=== PATIENT | female | born 1980 | race Caucasian/White ===

== ENCOUNTER 2017-07-10 15:02 | Emergency (ER) | payer BC, OTHER ==
[2017-07-10 15:10] VITALS: BP 136/88; PULSE 75; RESP 16; TEMP 97.7; O2SAT 97
--- NOTE | 2017-07-10 15:52 | EDPHY ---
H & P Stated Complaint: Slipped on ice this am hit bk head no loc - - Personal History LMP (Females 10-55): Unknown - Medical/Surgical History Hx Asthma: No Hx Chronic Respiratory Disease: No Hx Diabetes: No Hx Cardiac Disease: No Hx Renal Disease: No Hx Cirrhosis: No Hx Alcoholism: No Hx HIV/AIDS: No Hx Splenectomy or Spleen Trauma: No Other PMH: depression - Social History Smoking Status: Never smoked Time Seen by Provider: 07/10/17 15:25 HPI/ROS: CHIEF COMPLAINT: Head injury slipped on ice HISTORY OF PRESENT ILLNESS: 36-year-old female generally healthy, no anticoagulant use, arrives via private vehicle complaining of occipital head injury after she slipped on ice earlier today. She is in the ER to be evaluated as her colleagues were worried. She is complaining of mild nonprogressive non thunderclap headache and paraspinous cervical pain. No loss of consciousness. No amnesia. No alcohol or drug use. No midline C-spine pain. No headache. No nausea no vomiting. No peripheral paresthesia, weakness, numbness PRIMARY CARE PROVIDER: REVIEW OF SYSTEMS: A ten point review of systems was performed and is negative with the exception of the items mentioned in the HPI PAST MEDICAL/SURGICAL HISTORY: no anticoagulant use, no relevant medical/ surgical history SOCIAL HISTORY: denies alcohol use at time of incident PHYSICAL EXAM 1) GENERAL: Well-developed, well-nourished, alert and oriented. Appears to be in no acute distress. Answering questions appropriately. 2) HEAD: Normocephalic, atraumatic 3) HEENT: Pupils equal, round, reactive to light bilaterally. Negative Horners. Nasopharynx, oropharynx, clear. No deformity or angulation of nose. No septal hematoma. No rhinorrhea. No oral trauma. Ears bilaterally with normal tympanic membranes. No hemotympanum. No fluid or blood in the external auditory canal. No raccoon eyes. No Pitts sign. Teeth are normally aligned with no gross malocclusion, TMJ bilaterally nontender, facial bones nontender including the zygomatic arch, maxilla mandible. 4) NECK: No cervical collar is on. Posterior cervical spine is nontender, no stepoff, no effusion. Full range of motion which does not elicit any midline cervical spine pain, no posterior midline tenderness, no step-off. Mild this palpation paraspinous cervical muscles. 5) LUNGS: Clear to auscultation bilaterally, no wheezes, no rhonchi, no retractions. No obvious signs of trauma. No chest wall pain. No flaring, no grunting. Moving symmetrically. No crepitus. 6) HEART: [Regular rate and rhythm, 7) ABDOMEN: No guarding, no rebound, no focal tenderness, no peritoneal signs, no signs of trauma, no ecchymosis 8) MUSCULOSKELETAL: Moving all extremities, no focal areas of tenderness, no obvious trauma. 9) BACK: Patient logrolled while holding inline traction.No midline vertebral tenderness, no fluctuance, no step-off, no obvious trauma, no visual or palpable abnormality. 10) SKIN: No laceration. No abrasion 11) NEURO: Awake, alert, and oriented to person, place and time. Answers questions appropriately. There were no obvious focal neurologic abnormalities. No cerebellar dysfunction. Normal steady gait. Upper and lower extremities bilaterally with strength 5 / 5, reflexes 2+. DIFFERENTIAL DIAGNOSIS: Not necessarily in any particular order, my differential diagnosis includes, but is not limited to, concussion, skull fracture, intraparenchymal contusion, subarachnoid, subdural and epidural hematoma. The patient understands that this diagnosis is provisional and can never be 100% accurate. (Jose Antonio Pablo) Constitutional: Initial Vital Signs Temperature (C) 36.5 C 07/10/17 15:07 Heart Rate 75 07/10/17 15:07 Respiratory Rate 16 07/10/17 15:07 Blood Pressure 136/88 H 07/10/17 15:07 O2 Sat (%) 97 07/10/17 15:07 O2 Delivery Mode Room Air Allergies/Adverse Reactions: amoxicillin Allergy (Verified 07/10/17 15:06) Home Medications: Medication Instructions Recorded Zoloft 50mg (*) 07/10/17 ED Course/Re-evaluation: 3:50 p.m.: Patient has negative [place] head injury decision-making tools. This time I do not think the benefits of CT imaging outweigh the risks in this patient whom I have a low pretest index of suspicion for intracranial hemorrhage and/or skull fracture. I discussed this with the patient and she feels comfortable with this plan. Usual and customary head injury precautions instructions provided including, but not limited to 2nd impact syndrome. Care of patient under supervision of secondary supervising physician Dr Gordon Castro. (Jose Antonio Pablo Rhoda) Departure - Departure Disposition: Home, Routine, Self-Care Clinical Impression: Fall from slipping on ice Qualifiers: Encounter type: initial encounter Qualified Code(s): W00.9XXA - Unspecified fall due to ice and snow, initial encounter Head injury due to trauma Qualifiers: Encounter type: initial encounter Qualified Code(s): S09.90XA - Unspecified injury of head, initial encounter Condition: Good Instructions: Head Injury (ED) Additional Instructions: PLEASE RETURN TO THE EMERGENCY DEPARTMENT (ED) IMMEDIATELY IF YOU HAVE INCREASED HEADACHE, PERSISTENT HEADACHE, VOMITING, WEAKNESS, CONFUSION OR VISUAL PROBLEMS. WE RECOMMEND THAT YOU DO NOT RESUME CONTACT SPORTS OR ACTIVITIES THAT TAKE COORDINATION OR BALANCE SUCH SKIING OR RIDING A BICYCLE UNTIL CLEARED TO DO SO BY YOUR DOCTOR OR BY A NEUROLOGIST. Referrals: ANDRIY AREVALO [Primary Care Provider] - As per Instructions Xenia Polanco MD [Medical Doctor] - 5-7 days, call for appt.
== END 2017-07-10 16:00 | disposition home or self-care (01) ==
DX: S09.90XA Unspecified injury of head, initial encounter (principal); W00.9XXA Unspecified fall due to ice and snow, initial encounter; Y99.8 Other external cause status